=== PATIENT | female | born 1970 | race Caucasian/White ===

== ENCOUNTER 2023-05-17 00:57 | Emergency (ER) | payer OTHER ==
[~2023-05-17] VITALS: Ht 162.6 cm; Wt 113.8 kg
[~2023-05-17 00:57] MED LIST: AMBIEN5 M1; AMITRIPTYLINE H10 M2; BIOTIN1 M1; CYCLOBENZ5 MG; HYDROCHLOROTH12.5 M1; HYDROCODONE BIT10 MG; PRAVASTATIN SOD10 MG; REGLAN5 M1 PO; VITAMIN B122500 MC1; VITAMIN D210 MCG; WELLBUTRIN 75MG75 MG; ZOLOFT25 M1
[2023-05-17] MEDS ORDERED: Orphenadrine 60 MG/2ML AMP IM ONE (01:45)
[2023-05-17] MEDS ORDERED: Lidocaine 4% Topical Patch TP ONE (01:45)
[2023-05-17] MEDS ORDERED: Morphine 10 MG/ML VIAL IM ONE (01:45)
[2023-05-17] MEDS ORDERED: Ketorolac 30 MG/ML VIAL IM ONE (01:45)
[2023-05-17 02:10] VITALS: BP 132/68
== END 2023-05-17 02:10 | disposition home or self-care (01) ==
LOC: ED 00:57
DX: M25.551 Pain in right hip (principal); M54.50 Low back pain, unspecified; G89.29 Other chronic pain; Z91.040 Latex allergy status; Z88.5 Allergy status to narcotic agent
CPT/HCPCS: J1885; J2270; J2360